=== PATIENT | female | born 1970 | race Caucasian/White ===

== ENCOUNTER 2017-02-28 18:34 | Emergency (ER) | payer OTHER ==
[2017-02-28 18:38] VITALS: BP 117/75; PULSE 77; TEMP 98; BMI 32.1
[2017-02-28] MEDS ORDERED: KETOROLAC TROMETHAMINE 60 MG/2 ML VIAL IM ONE (19:04)
--- NOTE | 2017-02-28 19:05 | PDOC ---
History of Present Illness - General Chief Complaint: Pain Stated Complaint: PAIN Time Seen by Provider: 02/28/17 19:04 History Source: Patient Exam Limitations: No Limitations - History of Present Illness Initial Comments: 02/28/17 19:06 46-year-old female presents to the ED with long-standing history of left elbow pain. Patient states approximately 3-4 months ago pain began which she describes as a sharp intermittent pain that radiates to her left fourth and fifth digits. Patient states her physician had tried to medications for discomfort but states while mowing made her too drowsy so she stopped at any other did not work for the pain. Patient also states was given an injection which she cannot recall. Patient also states unable to recall the medications or the primary care doctor that she sees currently. Patient denies any numbness or tinging to the fingers, neck pain, chest pain, shortness of breath, upper extremity swelling, skin discoloration, or sensory changes. 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 Timing/Duration: unsure Severity: mild Associated Symptoms: reports: denies symptoms Past History - Travel Traveled outside of the country in the last 30 days: No Close contact w/someone who was outside of country & ill: No - Past Medical History Allergies/Adverse Reactions: Allergies Allergy/AdvReac Type Severity Reaction Status Date / Time codeine [Codeine] Allergy Nausea Verified 02/28/17 18:37 Home Medications: Ambulatory Orders NK [No Known Home Medication] 11/05/13 Anemia: Yes COPD: No Thyroid Disease: No - Surgical History Abdominal Surgery: Yes - Suicide/Smoking/Psychosocial Hx Smoking Status: No Smoking History: Former smoker Have you smoked in the past 12 months: No Number of Cigarettes Smoked Daily: 0 If you are a former smoker, when did you quit?: 9 YRS AGO Cigars Per Day: 0 Information on smoking cessation initiated: No Hx Alcohol Use: Yes (SOCIAL) Drug/Substance Use Hx: No Substance Use Type: None Patient Lives Alone: No Lives with/in: spouse/SO Review of Systems - Review of Systems Able to Perform ROS?: Yes Constitutional: No: Symptoms Reported Cardiac (ROS): No: Symptoms Reported ABD/GI: No: Symptoms Reported Musculoskeletal: Yes: Joint Pain (Left elbow) Integumentary: No: Symptoms Reported Neurological: No: Numbness, Tingling, Dizziness Hematologic/Lymphatic: No: Symptoms Reported *Physical Exam - Vital Signs Last Vital Signs Temp Pulse Resp BP Pulse Ox 98.0 F 77 20 117/75 100 02/28/17 18:34 02/28/17 18:34 02/28/17 18:34 02/28/17 18:34 02/28/17 18:34 - Physical Exam General Appearance: Yes: Nourished, Appropriately Dressed. No: Apparent Distress Neck: positive: Supple. negative: Tender Extremity: positive: Normal Capillary Refill, Normal Inspection, Normal Range of Motion, Tender (at the left supracondylar notch. Over the ulnar nerve) Integumentary: positive: Normal Color, Warm, Moist Neurologic: positive: Normal Mood/Affect, Motor Strength 5/5 (left hand grasp) Medical Decision Making - Medical Decision Making 02/28/17 19:13 Patient with left elbow pain likely tendinitis. Patient ordered for Toradol IM and will be discharged home with Ultram. *DC/Admit/Observation/Transfer Diagnosis at time of Disposition: Left elbow tendinitis - Discharge Dispostion Disposition: HOME Condition at time of disposition: Good - Referrals Referrals: Janes Hall MD [Staff Physician] - - Patient Instructions Printed Discharge Instructions: DI for Tendinitis Additional Instructions: Please follow-up with referred orthopedist and take Ultram for discomfort. - Post Discharge Activity
== END 2017-02-28 19:21 | disposition home or self-care (01) ==
LOC: JERFT 18:34
PROC: 3E0233Z Introduction of Anti-inflammatory into Muscle, Percutaneous Approach (ICD-10-PCS; principal; 2017-02-28)
DX: M77.8 Other enthesopathies, not elsewhere classified (principal)
CPT/HCPCS: 96372; 99281-25

== ENCOUNTER 2017-06-27 15:53 | Emergency (ER) | payer OTHER ==
[2017-06-27 16:08] VITALS: TEMP 98; BMI 32.1
--- NOTE | 2017-06-27 16:08 | PDOC ---
History of Present Illness - General History Source: Patient Exam Limitations: No Limitations - History of Present Illness Initial Comments: 06/27/17 17:25 The patient is a 47 year old female with past medical history of borderline diabetes presents to the ER complaining of worsening left anterior chest wall discomfort for the past 2 weeks. The patient reports a non-radiating burning sensation which comes and goes with varied severity, and is reproducible to touch. The patient states she has noticed a clorox taste on the back of her mouth in the morning recently. The patient states that rubbing the anterior chest wall region provides temporary relief. The patient reports neck and upper back pain which started 2 weeks ago. The patient reports she has leg swelling that not different from baseline. The patient reports she has been experiencing hot flashes, but denies diaphoresis. The patient denies SOB, pain upon deep breathing, cough, sore throat, rhinorrhea, headache, dizziness, nausea , vomiting, rash, or any recent travels.The patient reports she has an appointment with the deckhand maintenance later this week. LMP: No longer menstruating. Allergies: codeine Surgical History: partial hysterectomy Social History: Former smoker, no other toxic habits reported PCP: Dr. Temo Pollock <Katerine Nichols - Last Filed: 06/27/17 17:24> <Renee Brantley - Last Filed: 06/27/17 18:08> - General Stated Complaint: CHEST PAIN Time Seen by Provider: 06/27/17 16:06 Past History <Katerine Nichols - Last Filed: 06/27/17 17:24> - Past Medical History Anemia: Yes COPD: No Diabetes: Yes (borderline) Thyroid Disease: No - Surgical History Abdominal Surgery: Yes - Suicide/Smoking/Psychosocial Hx Smoking Status: No Smoking History: Former smoker Have you smoked in the past 12 months: No Number of Cigarettes Smoked Daily: 0 If you are a former smoker, when did you quit?: 9 YRS AGO Cigars Per Day: 0 Information on smoking cessation initiated: No Hx Alcohol Use: Yes (SOCIAL) Drug/Substance Use Hx: No Substance Use Type: None <Renee Brantlye - Last Filed: 06/27/17 18:08> - Past Medical History Allergies/Adverse Reactions: Allergies Allergy/AdvReac Type Severity Reaction Status Date / Time codeine [Codeine] Allergy Nausea Verified 06/27/17 16:01 Home Medications: Ambulatory Orders Tramadol HCl [Ultram] 50 mg PO BID PRN #10 tablet MDD 2 02/28/17 Cyclobenzaprine HCl [Flexeril 10 mg] 10 mg PO BID PRN #12 tablet 06/27/17 Ibuprofen [Motrin -] 600 mg PO TID PRN #15 tablet 06/27/17 Review of Systems - Review of Systems Able to Perform ROS?: Yes Comments:: 06/27/17 17:25 GENERAL/CONSTITUTIONAL: No fever or chills. No weakness. HEAD, EYES, EARS, NOSE AND THROAT: No change in vision. No ear pain or discharge. No sore throat. CARDIOVASCULAR: (+) Chest discomfort. No shortness of breath. RESPIRATORY: No cough, wheezing, or hemoptysis. GASTROINTESTINAL: No nausea, vomiting, diarrhea or constipation. GENITOURINARY: No dysuria, frequency, or change in urination. MUSCULOSKELETAL: No joint swelling or pain. (+) Neck pain. (+) Upper back pain. SKIN: No rash NEUROLOGIC: No headache, vertigo, loss of consciousness, or change in strength/ sensation. ENDOCRINE: No increased thirst. No abnormal weight change. HEMATOLOGIC/LYMPHATIC: No anemia, easy bleeding, or history of blood clots. ALLERGIC/IMMUNOLOGIC: No hives or skin allergy. <Katerine Nichols - Last Filed: 06/27/17 17:24> *Physical Exam - Vital Signs Last Vital Signs Temp Pulse Resp BP Pulse Ox 98.0 F 81 18 127/84 100 06/27/17 16:01 06/27/17 16:01 06/27/17 16:01 06/27/17 16:01 06/27/17 16:01 - Physical Exam Comments: 06/27/17 17:26 GENERAL: Awake, alert, and fully oriented, in no acute distress HEAD: No signs of trauma EYES: PERRLA, EOMI, sclera anicteric, conjunctiva clear ENT: Auricles normal inspection, hearing grossly normal, nares patent, oropharynx clear without exudates. Moist mucosa NECK: Normal ROM, supple, no lymphadenopathy, JVD, or masses. (+) Tense spasms at the paraspinal and cervical muscles. No midline ttp. LUNGS: Breath sounds equal, clear to auscultation bilaterally. No wheezes, and no crackles HEART: Regular rate and rhythm, normal S1 and S2, no murmurs, rubs or gallops. ( +) Left anterior chest wall ttp. ABDOMEN: Soft, (+) mild epigastric ttp, normoactive bowel sounds. No guarding, no rebound. No masses EXTREMITIES: Normal range of motion, no edema. No clubbing or cyanosis. No cords, erythema, or tenderness NEUROLOGICAL: Cranial nerves II through XII grossly intact. Normal speech SKIN: Warm, Dry, normal turgor, no rashes or lesions noted. <Katerine Nichols - Last Filed: 06/27/17 17:24> - Vital Signs Last Vital Signs Temp Pulse Resp BP Pulse Ox 98.0 F 81 18 127/84 100 06/27/17 16:01 06/27/17 16:01 06/27/17 16:01 06/27/17 16:01 06/27/17 16:01 <Renee Brantley - Last Filed: 06/27/17 18:08> ED Treatment Course - LABORATORY CBC & Chemistry Diagram: 06/27/17 16:30 06/27/17 16:30 - ADDITIONAL ORDERS Additional order review: 06/27/17 16:30 RBC 4.13 MCV 83.3 MCHC 33.2 RDW 13.7 MPV 8.9 Neutrophils % 39.0 L Lymphocytes % 46.4 H Monocytes % 12.3 H Eosinophils % 1.5 Basophils % 0.8 - Medications Given in the ED: ED Medications Discontinued Medications Generic Name Dose Route Start Last Admin Trade Name Freq PRN Reason Stop Dose Admin Al Hydroxide/Mg Hydroxide 30 ml 06/27/17 16:19 06/27/17 16:30 Mylanta Oral Suspension - PO 06/27/17 16:20 30 ml ONCE ONE Administration Cyclobenzaprine HCl 10 mg 06/27/17 16:19 06/27/17 16:30 Flexeril - PO 06/27/17 16:20 10 mg ONCE ONE Administration Ibuprofen 600 mg 06/27/17 16:24 06/27/17 16:30 Motrin - PO 06/27/17 16:25 600 mg ONCE ONE Administration <Katerine Nichols - Last Filed: 06/27/17 17:24> - LABORATORY CBC & Chemistry Diagram: 06/27/17 16:30 06/27/17 16:30 <Renee Brantley - Last Filed: 06/27/17 18:08> Medical Decision Making - Medical Decision Making 06/27/17 16:26 a/p: 47yo female with L anterior chest wall pain -atypical story for acs -no risk factors for acs -ekg nonacute -paraspinal ttp cervical spine -will treat muscle spasm, pain control -reproducible chest wall pain -will check labs -cxr -ekg 06/27/17 18:05 pt states feeling better sleeping in the stretcher moving neck with ease discussed reasons to follow up with Cards as scheduled on wednesday discussed labs results pt eating a sandwich stable for d/c to home answered all questions <Renee Brantley - Last Filed: 06/27/17 18:08> *DC/Admit/Observation/Transfer - Attestations Scribe Attestion: 06/27/17 17:26 Documentation prepared by Katerine Nichols, acting as medical office professional instructor for Renee Brantley DO, <Katerine Nichols - Last Filed: 06/27/17 17:24> - Discharge Dispostion Admit: No - Attestations Physician Attestion: 06/27/17 18:08 I, Dr. Renee Brantley DO, attest that this document has been prepared under my direction and personally reviewed by me in its entirety. I further attest, that it accurately reflects all work, treatment, procedures and medical decision -making performed by me. <Renee Brantley - Last Filed: 06/27/17 18:08> Diagnosis at time of Disposition: Chest pain, Neck muscle spasm - Discharge Dispostion Disposition: HOME Condition at time of disposition: Stable - Prescriptions Prescriptions: Cyclobenzaprine HCl [Flexeril 10 mg] 10 mg PO BID PRN #12 tablet PRN Reason: Muscle Spasms Ibuprofen [Motrin -] 600 mg PO TID PRN #15 tablet PRN Reason: Pain - Referrals Referrals: Temo Pollock MD [Primary Care Provider] - - Patient Instructions Printed Discharge Instructions: DI for Atypical Chest Pain Additional Instructions: Please take all medications as prescribed. Please keep your appointment with the deckhand maintenance as scheduled. Please return to the ED with any further concerns. Please make an appointment to see your PMD.
[2017-06-27] MEDS ORDERED: CYCLOBENZAPRINE HCL 10 MG TABLET (FP) PO ONE (16:19)
[2017-06-27] MEDS ORDERED: MAG HYDROX/AL HYDROX/SIMETH 30 ML UNIT-DOSE CUP PO ONE (16:19)
[2017-06-27] MEDS ORDERED: KETOROLAC TROMETHAMINE 15 MG/ML VIAL IVPUSH ONE (16:19)
[2017-06-27] MEDS ORDERED: IBUPROFEN 600 MG TABLET (FP) PO ONE ×2 (16:24→16:29)
[2017-06-27] MEDS ORDERED: CYCLOBENZAPRINE HCL 10 MG TABLET (FP) ONE (16:29)
[2017-06-27] MEDS ORDERED: MAG HYDROX/AL HYDROX/SIMETH 30 ML UNIT-DOSE CUP ONE (16:29)
[2017-06-27 16:51] LABS: BASO % 0.8 % (0-2.0); EOS % 1.5 % (0-4.5); HEMATOCRIT 34.4 % (32.4-45.2); HEMOGLOBIN 11.4 GM/dL (10.7-15.3); LYMPH % 46.4 % (8-40); MCH 27.7 pg (25.7-33.7); MCHC 33.2 g/dl (32.0-36.0); MEAN CELL VOLUME 83.3 fl (80-96); MEAN PLT VOLUME 8.9 fl (7.5-11.1); MONO % 12.3 % (3.8-10.2); PLATELET COUNT 287 K/MM3 (134-434); RBC 4.13 M/mm3 (3.60-5.2); RDW 13.7 % (11.6-15.6); WHITE BLOOD COUNT 6.3 K/mm3 (4.0-10.0)
[2017-06-27 17:24] LABS: ALBUMIN 3.7 g/dl (3.4-5.0); ANION GAP 8 (8-16); BLOOD UREA NITROGEN 11 mg/dL (7-18); CALCIUM 8.8 mg/dL (8.5-10.1); CHLORIDE 105 mmol/L (98-107); CO2 25 mmol/L (21-32); CREATININE 0.9 mg/dL (0.55-1.02); GLUCOSE,RANDOM 93 mg/dL (74-106); LIPASE 127 U/L (73-393); POTASSIUM 4.2 mmol/L (3.5-5.1); SGOT/AST 17 U/L (15-37); SGPT/ALT 27 U/L (12-78); SODIUM 138 mmol/L (136-145); TOT PROT 7.6 g/dl (6.4-8.2)
[2017-06-27 17:27] LABS: ALK PHOS 73 U/L (45-117); BILIRUBIN,TOTAL < 0.1 mg/dL (0.2-1.0)
[2017-06-27 18:17] VITALS: BP 122/68; PULSE 70
--- NOTE | 2017-06-28 11:34 | EKG ---
Test Reason : Blood Pressure : / mmHG Vent. Rate : 074 BPM Atrial Rate : 074 BPM P-R Int : 198 ms QRS Dur : 084 ms QT Int : 400 ms P-R-T Axes : 057 033 022 degrees QTc Int : 444 ms NORMAL SINUS RHYTHM POSSIBLE LEFT ATRIAL ENLARGEMENT BORDERLINE ECG WHEN COMPARED WITH ECG OF 06-NOV-2013 00:13, NO SIGNIFICANT CHANGE WAS FOUND Confirmed by GRAEME JOSUE MD ([id number]) on 06/28/2017 11:34:11 AM Referred By: Confirmed By:GRAEME JOSUE MD
== END 2017-06-27 18:17 | disposition home or self-care (01) ==
LOC: JER 15:53
DX: R07.89 Other chest pain (principal); M62.838 Other muscle spasm; E11.9 Type 2 diabetes mellitus without complications; D64.9 Anemia, unspecified
CPT/HCPCS: 36415; 71045-TC-FY; 80053; 82550; 83690; 83880; 84484; 84702; 85025; 93005; 93010; 99285-25

== ENCOUNTER 2018-09-26 12:39 | Emergency (ER) | payer OTHER ==
[2018-09-26 12:51] VITALS: BP 114/66; PULSE 76; TEMP 98.2; BMI 33.0
== END 2018-09-26 14:21 | disposition left against medical advice (07) ==
LOC: JER 12:39
DX: Z53.21 Procedure and treatment not carried out due to patient leaving prior to being seen by health care provider (principal)
CPT/HCPCS: 99281-25

== ENCOUNTER 2018-11-10 09:13 | Day surgery (SDC) | payer OTHER ==
[2018-11-10 10:06] VITALS: TEMP 98.2; BMI 33.0
[2018-11-10 11:26] VITALS: PULSE 59
[2018-11-10 13:06] VITALS: BP 112/60
--- NOTE | 2018-11-11 19:04 | PATH ---
Surgical Pathology Report Patient Name: HERNAN OGLESBY [facility]. Rec. #: [id number] /Age/Gender: 1970 (Age: 48) / F Account: [id number] Location: [facility]-ENDOSCOPY Taken: 11/10/2018 Received: 11/10/2018 Reported: 11/11/2018 Physicians: Luis Manuel Padilla D.O. Specimen(s) Received A: HEPATIC FLEXURE POLYP B: DISTAL TRANSVERSE COLON POLYP C: DESCENDING COLON POLYP D: SIGMOID COLON POLYP Clinical History History of colon polyps, family history of colon cancer Postoperative diagnosis: Colon polyps, hemorrhoids Final Diagnosis A. COLON, HEPATIC FLEXURE, POLYP, BIOPSY: TUBULAR ADENOMA. B. DISTAL TRANSVERSE COLON, POLYPS, BIOPSY: POLYPOID COLONIC MUCOSA WITH SUPERFICIAL HYPERPLASTIC FEATURES. C. DESCENDING COLON, POLYP, BIOPSY: COLONIC MUCOSA WITH MILD SUPERFICIAL HYPERPLASTIC FEATURES. D. SIGMOID COLON, POLYP, BIOPSY: HYPERPLASTIC POLYP. Electronically Signed Leda Davidson M.D. Gross Description A. Received in formalin, labeled "hepatic flexure polyp biopsy" is a alvarez, irregular portion of soft tissue measuring 0.1 cm. in greatest dimension. The specimen is submitted in toto in one cassette. B. Received in formalin, labeled "distal transverse colon polyps" are 2 alvarez, irregular portions of soft tissue averaging 0.4 cm. in greatest dimension. The specimens are submitted in toto in one cassette. C. Received in formalin, labeled "descending colon polyp biopsy" is a alvarez, irregular portion of soft tissue measuring 0.3 cm. in greatest dimension. The specimen is submitted in toto in one cassette. D. Received in formalin, labeled "sigmoid colon polyp biopsy" is a alvarez, irregular portion of soft tissue measuring 0.4 cm. in greatest dimension. The specimen is submitted in toto in one cassette. 11/10/2018 saudi11/10/2018
== END 2018-11-10 12:50 | disposition home or self-care (01) ==
LOC: JASU-ENDO 09:13
PROVIDERS: ATTEND Internal Medicine Gastroenterology
PROC: 0DBL8ZX Excision of Transverse Colon, Via Natural or Artificial Opening Endoscopic, Diagnostic (ICD-10-PCS; 2018-11-10)
PROC: 0DBN8ZX Excision of Sigmoid Colon, Via Natural or Artificial Opening Endoscopic, Diagnostic (ICD-10-PCS; principal; 2018-11-10 10:15)
DX: Z12.11 Encounter for screening for malignant neoplasm of colon (principal); Z80.0 Family history of malignant neoplasm of digestive organs; K64.8 Other hemorrhoids; D12.3 Benign neoplasm of transverse colon; D12.5 Benign neoplasm of sigmoid colon; E11.9 Type 2 diabetes mellitus without complications; Z79.84 Long term (current) use of oral hypoglycemic drugs
CPT/HCPCS: 82962; 88305-TC

== ENCOUNTER 2018-11-17 09:04 | Day surgery (SDC) | payer OTHER ==
[2018-11-16 14:45] VITALS: BMI 33.0
[2018-11-17 10:38] VITALS: TEMP 97.7
[2018-11-17 12:36] VITALS: BP 113/72; PULSE 58
--- NOTE | 2018-11-19 20:49 | PATH ---
Surgical Pathology Report Patient Name: HERNAN OGLESBY [facility]. Rec. #: [id number] /Age/Gender: 1970 (Age: 48) / F Account: [id number] Location: [facility] Taken: 11/17/2018 Received: 11/17/2018 Reported: 11/19/2018 Physicians: Luis Manuel Padilla D.O. Specimen(s) Received BX BODY OF STOMACH Clinical History Gastritis Final Diagnosis BODY OF STOMACH, BIOPSY: GASTRIC MUCOSA WITH MODERATE CHRONIC GASTRITIS. IMMUNOSTAIN FOR H. PYLORI IS NEGATIVE. NEGATIVE FOR INTESTINAL METAPLASIA. Electronically Signed Reza Montelongo M.D. Gross Description Received in formalin, labeled "body of stomach" are multiple alvarez, irregular portions of soft tissue measuring 0.4 X 0.4 x 0.1 cm. in aggregate. The specimen is submitted in toto in one cassette. KWLatasha/11/17/2018 raina/11/17/2018
== END 2018-11-17 11:54 | disposition home or self-care (01) ==
LOC: JASU-ENDO 09:04
PROVIDERS: ATTEND Internal Medicine Gastroenterology
PROC: 0DB68ZX Excision of Stomach, Via Natural or Artificial Opening Endoscopic, Diagnostic (ICD-10-PCS; principal; 2018-11-17 10:00)
DX: K29.50 Unspecified chronic gastritis without bleeding (principal); K21.9 Gastro-esophageal reflux disease without esophagitis
CPT/HCPCS: 88305-TC; 88342-TC

== ENCOUNTER 2019-04-02 17:26 | Emergency (ER) | payer OTHER ==
[2019-04-02 17:38] VITALS: TEMP 98; BMI 33.0
--- NOTE | 2019-04-02 17:48 | PDOC ---
History of Present Illness - General Chief Complaint: Pain Stated Complaint: ABD/PAIN/ANAL/BLEEDING Time Seen by Provider: 04/02/19 17:48 Past History - Past Medical History Allergies/Adverse Reactions: Allergies Allergy/AdvReac Type Severity Reaction Status Date / Time codeine [Codeine] Allergy Nausea Verified 04/02/19 17:38 Home Medications: Ambulatory Orders metFORMIN HCL [Metformin HCl ER] 500 mg PO DAILY 11/09/18 Acetaminophen [Tylenol] 325 mg PO PRN PRN 11/10/18 Omeprazole 20 mg PO DAILY #20 tablet. 04/02/19 Anemia: Yes COPD: No Diabetes: Yes (borderline) Disorders: Yes (RT KIDNEY CYST) Thyroid Disease: No - Surgical History Abdominal Surgery: Yes (PARTIAL HYSTERECTOMY) - Psycho Social/Smoking Cessation Hx Smoking Status: No Smoking History: Never smoked Have you smoked in the past 12 months: No Number of Cigarettes Smoked Daily: 0 If you are a former smoker, when did you quit?: 9 YRS AGO Cigars Per Day: 0 Hx Alcohol Use: Yes (SOCIAL) Drug/Substance Use Hx: No Substance Use Type: None Hx Substance Use Treatment: No *Physical Exam - Vital Signs Last Vital Signs Temp Pulse Resp BP Pulse Ox 98 F 78 18 113/73 100 04/02/19 17:35 04/02/19 17:35 04/02/19 17:35 04/02/19 17:35 04/02/19 17:35 ED Treatment Course - LABORATORY CBC & Chemistry Diagram: 04/02/19 18:18 04/02/19 19:44 Discharge - Discharge Information Problems reviewed: Yes Clinical Impression/Diagnosis: Epigastric abdominal pain Diarrhea Qualifiers: Diarrhea type: unspecified type Qualified Code(s): R19.7 - Diarrhea, unspecified Condition: Stable Disposition: HOME - Admission No - Additional Discharge Information Prescriptions: Omeprazole 20 mg PO DAILY #20 tablet.dr - Follow up/Referral - Patient Discharge Instructions Patient Printed Discharge Instructions: Diarrhea Additional Instructions: You were seen in the ER for abdominal cramping, diarrhea. Your blood work was normal. Please follow up with your import and export clerk as soon as possible, in the next 7 days. Please return to the ER if you develop fevers, weakness, repeat episodes of bloody bowel movements. We are prescribing you omeprazole for your intestinal discomfort. Please take it as directed, once daily. - Post Discharge Activity
[2019-04-02 18:34] LABS: BASO % 1.3 % (0-2.0); EOS % 1.7 % (0-4.5); HEMATOCRIT 35.4 % (32.4-45.2); HEMOGLOBIN 11.5 GM/dL (10.7-15.3); LYMPH % 40.3 % (8-40); MCHC 32.5 g/dl (32.0-36.0); MEAN PLT VOLUME 9.3 fl (7.5-11.1); MONO % 14.9 % (3.8-10.2); NEUT % 41.8 % (42.8-82.8); PLATELET COUNT 274 K/MM3 (134-434); RBC 4.27 M/mm3 (3.60-5.2); RDW 13.8 % (11.6-15.6); WHITE BLOOD COUNT 7.9 K/mm3 (4.0-10.0)
[2019-04-02 19:33] LABS: EPI CELLS 0.2 /HPF (0-5/HPF); HYALINE CASTS 0 /lpf (0-8); URINE APPEARANCE CLEAR; URINE BACTERIA 5.3 /hpf (NEGATIVE); URINE BILIRUBIN NEGATIVE (NEGATIVE); URINE COLOR YELLOW; URINE GLUCOSE (UA) NEGATIVE (NEGATIVE); URINE KETONE NEGATIVE (NEGATIVE); URINE LEUK ESTERASE NEGATIVE (NEGATIVE); URINE NITRITE NEGATIVE (NEGATIVE); URINE PROTEIN NEGATIVE (NEGATIVE); URINE RBC 3 /hpf (0-4); URINE UROBILINOGEN 0.2 mg/dL (0.2-1.0); URINE WBC 0 /hpf (0-5)
[2019-04-02 19:37] VITALS: BP 117/69; PULSE 70
[2019-04-02 20:31] LABS: INR 1.05 (0.83-1.09); PROTHROMBIN TIME (PATIENT) 12.4 SEC (9.7-13.0)
[2019-04-02 20:32] LABS: ALBUMIN 3.7 g/dl (3.4-5.0); ALK PHOS 85 U/L (45-117); ANION GAP 6 MMOL/L (8-16); BILIRUBIN,TOTAL 0.1 mg/dL (0.2-1); BLOOD UREA NITROGEN 10.3 mg/dL (7-18); CALCIUM 8.6 mg/dL (8.5-10.1); CHLORIDE 104 mmol/L (98-107); CO2 27 mmol/L (21-32); CREATININE 0.8 mg/dL (0.55-1.3); GLUCOSE,RANDOM 104 mg/dL (74-106); SGOT/AST 15 U/L (15-37); SGPT/ALT 26 U/L (13-61); SODIUM 137 mmol/L (136-145); TOT PROT 7.4 g/dl (6.4-8.2)
[2019-04-02 20:34] LABS: ACTIVATED PTT 38.3 SECONDS (25.2-36.5)
[2019-04-02] MEDS ORDERED: MAG HYDROX/AL HYDROX/SIMETH 30 ML UNIT-DOSE CUP PO ONE (21:10)
[2019-04-02] MEDS ORDERED: FAMOTIDINE 20 MG/50 ML IVPB 20 MG/50 ML MG IVPB ONE ×2 (21:10→21:12)
[2019-04-02] MEDS ORDERED: METOCLOPRAMIDE HCL INJECTION 10 MG/2 ML VIAL IVPUSH ONE (21:10)
[2019-04-02] MEDS ORDERED: MAG HYDROX/AL HYDROX/SIMETH 30 ML UNIT-DOSE CUP ONE (21:12)
[2019-04-02] MEDS ORDERED: METOCLOPRAMIDE HCL INJECTION 10 MG/2 ML VIAL ONE (21:12)
--- NOTE | 2019-04-03 02:22 | PDOC ---
Documentation entered by Collin Cintron SCRIBE, acting as scribe for Ana Cristina Puri MD. Ana Cristina Puri MD: This documentation has been prepared by the Abdulaziz emerson Daniel, SCRIBE, under my direction and personally reviewed by me in its entirety. I confirm that the documentation accurately reflects all work, treatment, procedures, and medical decision making performed by me. Attending Attestation - Resident Resident Name: Layton Nunes - ED Attending Attestation I have performed the following: I have examined & evaluated the patient, The case was reviewed & discussed with the resident, I agree w/resident's findings & plan, Exceptions are as noted - HPI HPI: 04/02/19 19:18 The patient is a 49 year old female with no past medical history here today for evaluation of diarrhea and bright red blood per rectum. The patient reports that she has had 6 days of diarrhea (5-6 episodes per day) and diffuse abdominal pain most prominent in the right upper quadrant and epigastric area. She notes that today she noticed bright red rectal bleeding which prompted her to come to the ER. She notes a family history of colon cancer and states that she follows closely with her GI and has had 4 polyps removed with one being pre- cancerous. Patient denies headache, lightheadedness. Denies fever, chills. Denies chest pain, shortness of breath. Denies nausea, vomiting. Allergies: codeine GI: Josh DiGiorno - Physicial Exam PE: 04/03/19 02:22 I agree with the resident's physical exam - Medical Decision Making 04/02/19 18:34 ekg NSR of 69 bpm , III has q wave,inverted t wave 04/03/19 02:23 Patient had benign abdominal exam CBC did not show any anemia Stool Hemoccult was negative She has stable vital signs Patient to follow-up with her PCP and GI doctor
--- NOTE | 2019-04-03 10:07 | EKG ---
Test Reason : Blood Pressure : / mmHG Vent. Rate : 069 BPM Atrial Rate : 069 BPM P-R Int : 206 ms QRS Dur : 084 ms QT Int : 418 ms P-R-T Axes : 051 030 021 degrees QTc Int : 447 ms NORMAL SINUS RHYTHM POSSIBLE LEFT ATRIAL ENLARGEMENT BORDERLINE ECG WHEN COMPARED WITH ECG OF 27-JUN-2017 16:02, NO SIGNIFICANT CHANGE WAS FOUND Confirmed by GRAEME JOSUE MD ([id number]) on 04/03/2019 10:07:22 AM Referred By: Confirmed By:GRAEME JOSUE MD
== END 2019-04-02 22:32 | disposition home or self-care (01) ==
LOC: JER 17:26
PROC: 3E033GC Introduction of Other Therapeutic Substance into Peripheral Vein, Percutaneous Approach (ICD-10-PCS; principal; 2019-04-02)
PROC: 3E033GC Introduction of Other Therapeutic Substance into Peripheral Vein, Percutaneous Approach (ICD-10-PCS; 2019-04-02)
DX: R10.13 Epigastric pain (principal); R19.7 Diarrhea, unspecified; E11.9 Type 2 diabetes mellitus without complications; Z79.84 Long term (current) use of oral hypoglycemic drugs
CPT/HCPCS: 36415; 71045-TC-FY; 80053; 81003; 82272; 83690; 84484; 85025; 85610; 85730; 86850; 86900; 86901; 87086; 93005; 93010; 96365; 96375; 99283-25

== ENCOUNTER 2020-08-02 11:26 | Emergency (ER) | payer OTHER ==
[2020-08-02 11:46] VITALS: BP 110/62; PULSE 65; TEMP 98; BMI 36.3
[2020-08-02] MEDS ORDERED: KETOROLAC TROMETHAMINE 30 MG/1 ML VIAL IVPUSH ONE (12:11)
[2020-08-02] MEDS ORDERED: KETOROLAC TROMETHAMINE 30 MG/1 ML VIAL ONE (12:20)
[2020-08-02 12:49] LABS: BASO % 0.7 % (0-2.0); EOS % 2.5 % (0-4.5); HEMATOCRIT 34.3 % (32.4-45.2); HEMOGLOBIN 11.2 GM/dL (10.7-15.3); LYMPH % 46.6 % (8-40); MCH 27.4 pg (25.7-33.7); MCHC 32.8 g/dl (32.0-36.0); MEAN CELL VOLUME 83.5 fl (80-96); MEAN PLT VOLUME 8.9 fl (7.5-11.1); MONO % 10.7 % (3.8-10.2); NEUT % 39.5 % (42.8-82.8); PLATELET COUNT 285 K/MM3 (134-434); RDW 13.5 % (11.6-15.6); WHITE BLOOD COUNT 5.4 K/mm3 (4.0-10.0)
[2020-08-02 12:55] LABS: EPI CELLS 6 /uL (0-25.1); HCG,QUALITATIVE URINE Negative; HYALINE CASTS 0 /uL (0-3.1); PH,URINE 5.5 (5.0-8.0); URINE APPEARANCE CLEAR; URINE BACTERIA 197 /uL (0-1359); URINE BILIRUBIN NEGATIVE (NEGATIVE); URINE COLOR YELLOW; URINE GLUCOSE (UA) NEGATIVE (NEGATIVE); URINE KETONE NEGATIVE (NEGATIVE); URINE LEUK ESTERASE NEGATIVE (NEGATIVE); URINE NITRITE NEGATIVE (NEGATIVE); URINE PROTEIN NEGATIVE (NEGATIVE); URINE RBC 10 /uL (0-23.9); URINE UROBILINOGEN 0.2 mg/dL (0.2-1.0); URINE WBC 9 /uL (0-25.8)
[2020-08-02 13:07] LABS: CALCIUM 9.2 mg/dL (8.5-10.1)
[2020-08-02 13:08] LABS: BLOOD UREA NITROGEN 13.7 mg/dL (7-18)
[2020-08-02 13:11] LABS: CREATININE 0.7 mg/dL (0.55-1.3)
== END 2020-08-02 15:07 | disposition home or self-care (01) ==
LOC: JERFT 11:26 → JER 11:26 → JERFT 15:07
PROC: 3E0333Z Introduction of Anti-inflammatory into Peripheral Vein, Percutaneous Approach (ICD-10-PCS; principal; 2020-08-02)
DX: M54.5 Low back pain (principal)
CPT/HCPCS: 36415; 74176-TC; 80048; 81003; 84703; 85025; 87086; 99284-25

== ENCOUNTER 2023-01-28 05:04 | Day surgery (SDC) | payer OTHER ==
[2023-01-21 14:05] VITALS: BMI 29.2
[2023-01-28 09:33] VITALS: TEMP 98.2
[2023-01-28 10:09] VITALS: BP 114/57; PULSE 64; RESP 18
== END 2023-01-28 11:15 | disposition home or self-care (01) ==
LOC: JASU-ENDO 05:04
PROVIDERS: ATTEND Internal Medicine Gastroenterology
PROC: 0DBN8ZX Excision of Sigmoid Colon, Via Natural or Artificial Opening Endoscopic, Diagnostic (ICD-10-PCS; principal; 2023-01-28 09:30)
DX: Z12.11 Encounter for screening for malignant neoplasm of colon (principal); K63.5 Polyp of colon; K64.8 Other hemorrhoids; Z86.010 Personal history of colon polyps; E11.9 Type 2 diabetes mellitus without complications; Z79.84 Long term (current) use of oral hypoglycemic drugs
CPT/HCPCS: 82962; 88305-TC